=== PATIENT | female | born 2000 | race Caucasian/White ===

== ENCOUNTER 2021-02-10 10:39 | Outpatient (CLI) | payer OTHER | END 2021-02-10 10:40 | disposition home or self-care (01) | LOC: CSHMRI 10:39 | PROVIDERS: ATTEND Specialist | DX: M54.50 Low back pain, unspecified (principal); M51.9 Unspecified thoracic, thoracolumbar and lumbosacral intervertebral disc disorder | CPT/HCPCS: 72148 ==